=== PATIENT | female | born 1990 | race African-American/Black ===

== ENCOUNTER 2022-02-27 16:49 | Emergency (ER) | payer SELFPAY ==
[~2022-02-27] VITALS: Ht 172.7 cm; Wt 110.0 kg
[2022-02-27] MEDS ORDERED: IOHEXOL 300 MG/ML 100ML BOTTLE IJ ONE (20:25)
[2022-02-27] MEDS ORDERED: ONDANSETRON HCL 4 MG/2 ML VIAL IV ONE (21:45)
[2022-02-27] MEDS ORDERED: HYDROmorphone HCL 2 MG/ML VL/or syr IV ONE (21:45)
[2022-02-27] MEDS ORDERED: LIDOCAINE 1% HCL (LOCAL ANESTH.) INJ 20ML MDV ID ONE (23:45)
[2022-02-28] MEDS ORDERED: NEOMYCIN-BACITRACIN-POLYM UNITDOSE PKG TOP OINT TOP ONE (00:30)
[2022-02-28] MEDS ORDERED: HYDROmorphone HCL 2 MG/ML VL/or syr IV ONE (01:00)
[2022-02-28 01:50] VITALS: BP 145/79
== END 2022-02-28 02:13 | disposition home or self-care (01) ==
LOC: ER 16:49 → EDBD 16:49 → ER 02-28 02:13
DX: S73.004A Unspecified dislocation of right hip, initial encounter (principal); S32.401A Unspecified fracture of right acetabulum, initial encounter for closed fracture; S62.617A Displaced fracture of proximal phalanx of left little finger, initial encounter for closed fracture; S81.011A Laceration without foreign body, right knee, initial encounter; V43.52XA Car driver injured in collision with other type car in traffic accident, initial encounter; Y93.89 Activity, other specified; Y92.410 Unspecified street and highway as the place of occurrence of the external cause; Y99.8 Other external cause status
CPT/HCPCS: 12002; 70450; 71260; 72125; 73130; 73552; 74177; 93005; 96374; 96375; 96376; 99285; J1170; J2001; J2405; Q9967